=== PATIENT | female | born 1960 | race Caucasian/White ===

== ENCOUNTER 2018-08-24 07:04 | Day surgery (SDC) | payer BC ==
[~2018-08-24] VITALS: Ht 175.3 cm; Wt 82.0 kg
[~2018-08-24 07:04] MED LIST: No meds per pt.
[2018-08-24] MEDS ORDERED: BUPIVACAINE/EPI 0.5% 1:200K ONE (07:15)
[2018-08-24] MEDS ORDERED: LACTATED RINGERS 1,000 ML IV SCH (07:15)
[2018-08-24] MEDS ORDERED: LIDOCAINE/MPF 2%-EPI 1:200K, 20 ML ONE (07:15)
[2018-08-24] MEDS ORDERED: LIDOCAINE 1%-EPI 1:100K, 20ML ONE (07:19)
[2018-08-24 07:33] VITALS: BP 138/82
[2018-08-24] MEDS ORDERED: MIDAZOLAM 1 MG/ML, 2ML ONE (09:20)
[2018-08-24] MEDS ORDERED: FENTANYL PF 100 MCG/2ML ONE (09:20)
[2018-08-24] MEDS ORDERED: CEFAZOLIN 1,000 MG ONE (09:49)
[2018-08-24] MEDS ORDERED: ONDANSETRON 2MG/ML, 2ML ONE (09:49)
[2018-08-24] MEDS ORDERED: PROPOFOL 10 MG/ML, 20ML ONE (09:49)
[2018-08-24] MEDS ORDERED: DEXAMETHASONE 4 MG/ML, 1ML ONE (09:49)
[2018-08-24] MEDS ORDERED: ACETAMINOPHEN 325 MG TABLET PO PRN (10:30)
[2018-08-24] MEDS ORDERED: HYDROmorphone 2 MG/ML, 1ML IVPush PRN (10:30)
[2018-08-24] MEDS ORDERED: ALBUTEROL SULFATE 2.5 MG/3 ML NPPB PRN (10:30)
[2018-08-24] MEDS ORDERED: DIAZEPAM 5 MG/ML, 2ML IVPush PRN (10:30)
[2018-08-24] MEDS ORDERED: FENTANYL PF 100 MCG/2ML IV PRN (10:30)
[2018-08-24] MEDS ORDERED: LABETALOL 5MG/ML, 20ML IV PRN (10:30)
[2018-08-24] MEDS ORDERED: MEPERIDINE/PF 25MG/0.5ML IVPush PRN (10:30)
[2018-08-24] MEDS ORDERED: hydrALAzine 20 MG/ML, 1ML IV PRN (10:30)
[2018-08-24] MEDS ORDERED: OXYcodone 5 MG/5 ML ORAL.SOL UDC PO PRN (10:30)
[2018-08-24] MEDS ORDERED: PROMETHAZINE 25 MG/ML, 1ML IV PRN (10:30)
[2018-08-24] MEDS ORDERED: ACETAMINOPHEN 650 MG/20.3 ML UDC ONE (11:16)
== END 2018-08-24 12:12 | disposition home or self-care (01) ==
LOC: OUT 07:04
PROVIDERS: ATTEND Orthopaedic Surgery
DX: S83.232A Complex tear of medial meniscus, current injury, left knee, initial encounter (principal); S83.272A Complex tear of lateral meniscus, current injury, left knee, initial encounter; M94.262 Chondromalacia, left knee; X58.XXXA Exposure to other specified factors, initial encounter; Y93.89 Activity, other specified; Y92.89 Other specified places as the place of occurrence of the external cause; Y99.8 Other external cause status
CPT/HCPCS: 29880; J0690; J1100; J2250; J2405; J2704; J3010; J3490; J7120